=== PATIENT | female | born 1970 | race Caucasian/White ===

== ENCOUNTER 2021-06-02 21:03 | Emergency (ER) | payer MEDICAID ==
[~2021-06-02] VITALS: Ht 157.5 cm; Wt 73.6 kg
[~2021-06-02 21:03] MED LIST: METO-408 PO
[2021-06-02 21:20] VITALS: BP 155/108
== END 2021-06-02 23:00 | disposition left against medical advice (07) ==
LOC: EMS 21:07
DX: R10.9 Unspecified abdominal pain (principal); Z53.21 Procedure and treatment not carried out due to patient leaving prior to being seen by health care provider

== ENCOUNTER 2023-01-15 15:08 | Emergency (ER) | payer MEDICAID, OTHER ==
[~2023-01-15] VITALS: Ht 157.5 cm; Wt 77.3 kg
[2023-01-15] MEDS ORDERED: AMLO5TAB66 PO (15:17)
[2023-01-15] MEDS ORDERED: OMEP1CAP25 PO (15:17)
[2023-01-15] MEDS ORDERED: KETOROLAC TROMETHAMINE 30 MG/ML VIAL IM ONE (19:00)
[2023-01-15] MEDS ORDERED: TRAM-559 PO (20:20)
[2023-01-15 20:35] VITALS: BP 120/71
== END 2023-01-15 20:40 | disposition home or self-care (01) ==
LOC: EMS 15:09
DX: M25.562 Pain in left knee (principal); I10 Essential (primary) hypertension; Z90.49 Acquired absence of other specified parts of digestive tract; Z98.890 Other specified postprocedural states
CPT/HCPCS: 99283; 73562; 96372; J1885